=== PATIENT | male | born 1995 | race Caucasian/White ===

== ENCOUNTER 2018-04-26 11:05 | Emergency (ER) | payer BC, OTHER ==
[~2018-04-26] VITALS: Ht 180.3 cm; Wt 80.8 kg
[~2018-04-26 11:05] MED LIST: RTPRO5; TYLENOL
[2018-04-26 11:17] VITALS: Ht 180.3 cm; Wt 80.8 kg
[2018-04-26] MEDS ORDERED: KETOROLAC 30 MG INJ IM STA (11:52)
[2018-04-26] MEDS ORDERED: DEXAMETHASONE 10 MG/ML 1 ML INJ IM ONE (12:00)
[2018-04-26] MEDS ORDERED: METHOCARBAMOL 750 MG TAB PO ONE (12:00)
[2018-04-26] MEDS ORDERED: METH750T93 PO (12:42)
[2018-04-26] MEDS ORDERED: IBUP-1542 PO (12:42)
[2018-04-26] MEDS ORDERED: HYDR-4011 PO (12:42)
[2018-04-26 12:49] VITALS: BP 119/79; PULSE 68; RESP 18
--- NOTE | 2018-04-26 12:49 | ERD ---
ER Documentation Chief Complaint Chief Complaint BACK PAIN X 3 DAYS HPI 22-year-old male presents for low back pain times 3 days. Patient states that he was doing heavy lifting at the gym and a day or 2 later he noted to have low back pain. States that the back pain is 9 out of 10. He has been taking Advil about 400 mg without relief. Denies any lower extremity weakness. Denies any loss of bowel or bladder function. No significant past medical history. ROS All systems reviewed and are negative except as per history of present illness. Medications Home Meds Active Scripts Methocarbamol* (Robaxin*) 750 Mg Tablet, 750 MG PO TID for muscle spasm, #30 TAB Prov:GA CLEMENTS 04/26/18 Ibuprofen* (Motrin*) 600 Mg Tab, 600 MG PO Q6H PRN for PAIN AND OR ELEVATED TEMP, #30 TAB Prov:CLEMENTSGA 04/26/18 Hydrocodone/Acetaminophen (Fairplay 5-325 Tablet) 1 Each Tablet, 1 EACH PO Q6H PRN for PAIN, #10 TAB Prov:TYREEGA ADAMS 04/26/18 Reported Medications [Tylenol] No Conflict Check 04/29/11 Albuterol Sulfate* (Proventil* Neb) 0.5 Ml Nebu 07/11/09 Allergies Allergies: Coded Allergies: No Known Drug Allergies (Verified Allergy, Mild, 04/26/18) PMhx/Soc History of Surgery: No Hx Neurological Disorder: No Hx Respiratory Disorders: Yes (asthma) Hx Cardiac Disorders: No Hx Psychiatric Problems: No Hx Miscellaneous Medical Probl: No Hx Alcohol Use: No Hx Substance Use: No Hx Tobacco Use: No Physical Exam Vitals Vital Signs Date Temp Pulse Resp B/P (MAP) Pulse Ox O2 O2 Flow FiO2 Time Delivery Rate 04/26/18 97.8 71 19 126/75 99 11:17 (92) Physical Exam Const: No acute distress Neck: Full range of motion. No meningismus. no midline tenderness Resp: Clear to auscultation bilaterally Cardio: Regular rate and rhythm, no murmurs, bilateral radial and dorsalis pedis pulses intact and equal Abd: Soft, non tender, non distended. Normal bowel sounds, no abdominal bruit noted Skin: No petechiae or rashes Back: Mild to moderate tenderness to palpation of the low back and paravertebral muscles. There is paravertebral muscle tightness noted in the low back area Ext: No cyanosis, or edema, 5/5 muscle strength bilateral upper and lower extremities Neur: Awake and alert, bilateral upper and lower extremity sensation intact Psych: Normal Mood and Affect Results 24 hrs Current Medications Medications Dose Sig/Sera Start Time Status Last (Trade) Ordered Route PRN Stop Time Admin Dose Reason Admin 10 mg ONCE ONCE 04/26/18 DC 04/26/18 Dexamethasone IM 12:00 12:08 (Decadron) 04/26/18 12:01 Ketorolac 30 mg ONCE STAT 04/26/18 DC 04/26/18 Tromethamine IM 11:52 12:09 (Toradol) 04/26/18 11:55 750 mg ONCE ONCE 04/26/18 DC 04/26/18 Methocarbamol PO 12:00 12:08 (Robaxin) 04/26/18 12:01 Procedures/MDM Medical Decision Making: Differential diagnosis includes but not limited to muscle strain, ligamentous sprain, epidural abscess, osteomyelitis, osteoarthritis, herniated disc, compression fracture, aortic aneurysm, kidney stone, pyelonephritis, pancreatitis. Patient appeared well on physical examination. Nontoxic appearing. Patient appeared well on physical examination. Nontoxic appearing. No recent back procedure, therefore low suspicion for epidural abscess No recent infection, therefore low suspicion for osteomyelitis No trauma, therefore low suspicion for fracture No chest pain, abdominal pain and no pulse deficits noted, therefore low suspicion for aortic dissection or pancreatitis No flank pain or fever to suggest pyelonephritis or kidney stone Patient likely has muscle strain ED course: Patient was given Decadron, Toradol, Robaxin. Symptoms improved with treatment. Prescription(s): Patient given prescription for Robaxin, Fairplay short course low-dose, Motrin. Patient advised to follow up with PCP in 1-2 days. Patient advised to return to ED for new or worsening symptoms. Patient stable on discharge from the ED. The patient has been prescribed Fairplay during this encounter. The patient has been warned about the use of narcotics. The patient should not drive or operate heavy machinery while taking this medication. The patient was also warned about the addictive properties of narcotic medications. Narcan prescription was NOT provided given the following criteria 1. No more than 5 tablets of Fairplay 10 mg or 10 tablets of Fairplay 5 mg were prescribed. 2. Concomitant opiate and benzodiazepine prescriptions were not provided. 3. There is no obvious evidence of prior history of opiate abuse or overdose. Disclaimer: Inadvertent spelling and grammatical errors are likely due to EHR/dictation software use and do not reflect on the overall quality of patient care. Also, please note that the electronic time recorded on this note does not necessarily reflect the actual time of the patient encounter. Departure Diagnosis: Primary Impression: Injury of back Encounter type: initial encounter Qualified Codes: S39.92XA - Unspecified injury of lower back, initial encounter Condition: Fair Patient Instructions: Back Sprain/Strain Referrals: [facility] YOU HAVE RECEIVED A MEDICAL SCREENING EXAM AND THE RESULTS INDICATE THAT YOU DO NOT HAVE A CONDITION THAT REQUIRES URGENT TREATMENT IN THE EMERGENCY DEPARTMENT. FURTHER EVALUATION AND TREATMENT OF YOUR CONDITION CAN WAIT UNTIL YOU ARE SEEN IN YOUR DOCTORS OFFICE WITHIN THE NEXT 1-2 DAYS. IT IS YOUR RESPONSIBILITY TO MAKE AN APPOINTMENT FOR FOLOW-UP CARE. IF YOU HAVE A PRIMARY DOCTOR --you should call your primary doctor and schedule an appointment IF YOU DO NOT HAVE A PRIMARY DOCTOR YOU CAN CALL OUR PHYSICIAN REFERRAL HOTLINE AT IF YOU CAN NOT AFFORD TO SEE A PHYSICIAN YOU CAN CHOSE FROM THE FOLLOWING [facility] [address] [facility] [facility] [address] [facility] [facility] [address] [facility] [facility] [address] [facility]. [facility] [address] [facility]. [facility]. [address] Additional Instructions: Call your primary care doctor TOMORROW for an appointment during the next 1-2 days.See the doctor sooner or return here if your condition worsens before your appointment time. GA CLEMENTS DO Apr 26, 2018 12:49
== END 2018-04-26 12:50 | disposition home or self-care (01) ==
LOC: FTE 11:05
DX: S39.92XA Unspecified injury of lower back, initial encounter (principal); J45.909 Unspecified asthma, uncomplicated; X50.0XXA Overexertion from strenuous movement or load, initial encounter; Y92.9 Unspecified place or not applicable
CPT/HCPCS: 72100; 96372; 99284; J1100; J1885